=== PATIENT | female | born 1935 | race Caucasian/White ===

== ENCOUNTER 2018-12-29 12:30 | Inpatient (IN) | payer MEDICARE ==
[~2018-12-29] VITALS: Ht 175.3 cm; Wt 74.8 kg
[~2018-12-29 12:30] MED LIST: ACET500T15 PO; ALBU17IN INH; AZIT500T5 PO; DIGO0.12 PO; ELIQ2.5T PO; LEVA1TAB2 PO; METO1TAB7 PO; MUCI600T37 PO; PROT1TAB2 PO; TOPR100T PO; XARE20TA PO
[2019-01-19] MEDS ORDERED: DIGO0.123 PO (08:03)
[2019-01-19] MEDS ORDERED: ASPI81TA85 PO (08:03)
--- NOTE | 2019-02-02 11:31 | HPE ---
DATE OF ADMISSION: 02/06/2019 Mrs. Mariee is an 83-year-old female with continuing symptomatic right knee osteoarthritis. She has consented for a right total knee arthroplasty per Dr. Pablo Cisse. Medical optimization per Dr. Soto and Dr. Mai. X-rays are consistent with advanced osteoarthritis. ALLERGIES: PENICILLIN causes hives. Notes MUCINEX caused her to have throat swelling. MEDICATIONS: - digoxin 0.125 mg by mouth daily - lorazepam 0.5 mg by mouth daily 10 days as needed - metoprolol succinate ER 1 tablet by mouth daily - rivaroxaban 20 mg by mouth daily MEDICAL PROBLEM LIST: Include: 1. Symptomatic right knee osteoarthritis. 2. Atrial fibrillation. PAST SURGICAL HISTORY: 1. Tubal ligation. 2. Stomach surgery. FAMILY HISTORY: Noncontributory. SOCIAL HISTORY: She has never smoked. Denies ethanol intake or illicit drugs. REVIEW OF SYSTEMS: Denies chest pain, shortness of breath, dyspnea on exertion, fever, chills, malaise, upper respiratory or urinary tract symptoms. Labs were reviewed. MCV 102.1. Glucose 104. Anion gap 6. Albumin-globulin ratio 0.95. ProTime 20.2. Otherwise, unremarkable. EKG, as read by Dr. Micehal Mai, atrial fibrillation, moderate ST depression. Compared to last four tracings in the system atrial fibrillation is old, heart rate is now slower. Chest x-ray: No acute cardiopulmonary process as read by Dr. Aceves. PHYSICAL EXAMINATION: Blood pressure 130/80, pulse 78, respiration 97.5. Height 69 inches. Weight 166 pounds and 8 ounces. BMI 24.6. Respirations 17. She is a pleasant, well-developed, well-nourished 83-year-old female in no acute distress, alert and oriented times three. Mood and affect are appropriate. Bilateral lower extremities show chronic dependent edema, some derma stasis, otherwise intact, benign noninfectious looking. Right knee joint line tenderness to palpation, otherwise not hot, benign noninfectious looking. Bowel soft, nontender times four. Chest rises symmetrically. Regular rate and rhythm. Lungs clear to auscultation. Neck supple. Negative jugular venous distention (JVD) or bruits. Normocephalic. IMPRESSION: 1. Right knee symptomatic osteoarthritis. 2. The patient consented for a right total knee arthroplasty per Dr. Pablo Cisse. 3. Medical optimization per Dr. Soto, primary care physician and Dr. Micheal Mai, Cardiology. 4. On-call to the operating room (OR) 900 mg clindamycin IV per PENICILLIN (PCN) ALLERGY. 5. Sequential compressive device (SCD) and thromboembolism deterrents (TEDs) in OR. Edited: 02/02/2019 1130 [facility]
--- NOTE | 2019-02-02 11:39 | HPE ---
DATE OF ADMISSION: 02/06/2019 COPIED AND PASTED TO ORIGINAL HISTORY AND PHYSICAL WHERE DICTATION ENDED............................. ON JOB #[id number] MEDICATIONS: - digoxin 0.125 mg by mouth daily - lorazepam 0.5 mg by mouth daily 10 days as needed - metoprolol succinate ER 1 tablet by mouth daily - rivaroxaban 20 mg by mouth daily MEDICAL PROBLEM LIST: Include: 1. Symptomatic right knee osteoarthritis. 2. Atrial fibrillation. PAST SURGICAL HISTORY: 1. Tubal ligation. 2. Stomach surgery. FAMILY HISTORY: Noncontributory. SOCIAL HISTORY: She has never smoked. Denies ethanol intake or illicit drugs. REVIEW OF SYSTEMS: Denies chest pain, shortness of breath, dyspnea on exertion, fever, chills, malaise, upper respiratory or urinary tract symptoms. Labs were reviewed. MCV 102.1. Glucose 104. Anion gap 6. Albumin-globulin ratio 0.95. ProTime 20.2. Otherwise, unremarkable. EKG, as read by Dr. Micheal Mai, atrial fibrillation, moderate ST depression. Compared to last four tracings in the system atrial fibrillation is old, heart rate is now slower. Chest x-ray: No acute cardiopulmonary process as read by Dr. Roberts. PHYSICAL EXAMINATION: Blood pressure 130/80, pulse 78, respiration 97.5. Height 69 inches. Weight 166 pounds and 8 ounces. BMI 24.6. Respirations 17. She is a pleasant, well-developed, well-nourished 83-year-old female in no acute distress, alert and oriented times three. Mood and affect are appropriate. Bilateral lower extremities show chronic dependent edema, some derma stasis, otherwise intact, benign noninfectious looking. Right knee joint line tenderness to palpation, otherwise not hot, benign noninfectious looking. Bowel soft, nontender times four. Chest rises symmetrically. Regular rate and rhythm. Lungs clear to auscultation. Neck supple. Negative jugular venous distention (JVD) or bruits. Normocephalic. IMPRESSION: 1. Right knee symptomatic osteoarthritis. 2. The patient consented for a right total knee arthroplasty per Dr. Pablo Cisse. 3. Medical optimization per Dr. Soto, primary care physician and Dr. Micheal Mai, Cardiology. 4. On-call to the operating room (OR) 900 mg clindamycin IV per PENICILLIN (PCN) ALLERGY. 5. Sequential compressive device (SCD) and thromboembolism deterrents (TEDs) in OR.
[2019-02-06] MEDS ORDERED: fentaNYL 100 MCG/2 ML INJECTION (J3010) IV SCH (06:00)
[2019-02-06] MEDS ORDERED: MIDAZOLAM INJ 2 MG/2 ML VIAL (J2250) IV SCH (06:00)
[2019-02-06] MEDS ORDERED: LIDOCAINE 1% MDV 20ML VIAL SQ PRN (06:00)
[2019-02-06] MEDS ORDERED: MIDAZOLAM INJ 2 MG/2 ML VIAL (J2250) As Ordered ONE ×2 (06:36→11:35)
[2019-02-06] MEDS ORDERED: fentaNYL 100 MCG/2 ML INJECTION (J3010) As Ordered ONE ×2 (06:36→11:35)
[2019-02-06] MEDS ORDERED: TRANEXAMIC ACID 100 MG/ML 10ML VIAL As Ordered ONE (06:44)
[2019-02-06] MEDS ORDERED: BUPIVACAINE HCL 0.25% 10 ML VIAL As Ordered ONE (06:44)
[2019-02-06] MEDS ORDERED: CLINDAMYCIN INJ 900MG/6ML VIAL As Ordered ONE (06:45)
[2019-02-06] MEDS ORDERED: BUPIVACAINE LIPOSOME/PF 1.3% 20ML VIAL (13.3MG/ML)(EXPAREL)(C9290 PER1MG) As Ordered ONE (06:45)
[2019-02-06] MEDS ORDERED: EPINEPHrine INJ 1 MG/ML 1ML VIAL As Ordered ONE (06:45)
[2019-02-06] MEDS ORDERED: LR 1,000 ML IV ONE (07:00)
[2019-02-06] MEDS ORDERED: ACETAMINOPHEN 500 MG TAB PO ONE (10:30)
[2019-02-06] MEDS ORDERED: VANCOMYCIN HCL 1,000 MG, VIAL MATE ADAPTER 1 EACH in D5W 250 ML IV ONE (10:30)
[2019-02-06] MEDS ORDERED: LIDOCAINE 2% INJ 100 MG/5 ML SDV (FOR ANES.) As Ordered ONE ×2 (11:32→13:40)
[2019-02-06] MEDS ORDERED: PROPOFOL 500 MG/50 ML VIAL As Ordered ONE (11:32)
[2019-02-06] MEDS ORDERED: ONDANSETRON 4MG/2ML VIAL (J2405) As Ordered ONE (11:33)
[2019-02-06] MEDS ORDERED: dexameTHASONE 4 MG/ML 1ML VIAL (J1100) As Ordered ONE (11:33)
[2019-02-06] MEDS ORDERED: EPINEPHrine INJ 1 MG/ML 1ML VIAL ONE (14:29)
[2019-02-06] MEDS ORDERED: dexameTHASONE 10 MG/1 ML VIAL PRES.FREE (J1100) ONE (14:29)
[2019-02-06] MEDS ORDERED: ROPIvacaine 0.5% 30 ML INJECTION (J2795 PER 1MG) ONE (14:29)
[2019-02-06] MEDS ORDERED: fentaNYL 100 MCG/2 ML INJECTION (J3010) IV PRN (15:00)
[2019-02-06] MEDS ORDERED: LR 1,000 ML IV SCH (15:00)
[2019-02-06] MEDS ORDERED: METOCLOPRAMIDE INJ 10MG/2ML VIAL (J2765) IV PRN (15:00)
[2019-02-06] MEDS ORDERED: oxyCODONE 5MG TAB PO PRN (15:00)
[2019-02-06] MEDS ORDERED: ONDANSETRON 4MG/2ML VIAL (J2405) IV PRN (15:00)
[2019-02-06] MEDS ORDERED: MEPERIDINE INJ 25 MG/ML VIAL (J2175) IV PRN (15:00)
--- NOTE | 2019-02-06 15:11 | REP ---
Clinical: Status post knee replacement. Technique AP and cross-table lateral views. Findings: The patient is status post right knee replacement with normal positioning and appearance to the femoral and tibial components. Overlying postsurgical changes appreciated. Impression: Status post right knee replacement. Electronically Signed by Kieran Aceves MD 02/06/2019 03:03 P
[2019-02-06 15:55] VITALS: BP 118/64
[2019-02-06] MEDS: LR 1,000 ML IV SCH (16:00)
[2019-02-06] MEDS ORDERED: FLEET ENEMA PR PRN (16:00)
[2019-02-06] MEDS ORDERED: HYDROMORPHONE HCL 0.5 MG/ 0.5 ML SYRINGE (J1170 PER 1) IV PRN ×2 (16:00)
[2019-02-06] MEDS ORDERED: ACETAMINOPHEN TAB 650MG DOSE (2X325MG) PO PRN (16:00)
--- NOTE | 2019-02-06 18:28 | CR.PDOC ---
General Date of Consultation: Feb 06, 2019 Consultation REASON FOR CONSULTATION/CHIEF COMPLAINT: Physical evaluation HISTORY OF PRESENT ILLNESS: Patient is 83 years old female with past medical history of atrial fibrillation, arthritis was admitted for planned right knee replacement. The surgery was done today and it was uncomplicated. Patient denies fever, chills, nausea, vomiting, shortness of breath, palpitations, diarrhea or dysuria ALLERGIES: Please see below. HOME MEDICATIONS: Please see below. PAST MEDICAL HISTORY: 1. Arthritis 2. Atrial fibrillation PAST SURGICAL HISTORY: 1 Tubal ligation. FAMILY HISTORY: I personally reviewed family history and found non pertinent SOCIAL HISTORY: ETOH: Negative Illicit drug use: Negative IV drug use: Negative REVIEW OF SYSTEMS: 10 point review system negative except listed as above PHYSICAL EXAMINATION: VITAL SIGNS: Please see below. GENERAL APPEARANCE: Well-nourished, well-developed, not in apparent distress HEENT: Normocephalic, atraumatic. Mucous members moist and pink CARDIOVASCULAR: Regular rate and rhythm. No murmurs, rubs or gallops. Radial pulses are intact. There is no lower extremity edema LUNGS: CTA ABDOMEN: Abdomen is soft and nontender. MUSCULOSKELETAL: Limited right knee range of motion due to surgery NEUROLOGICAL: Cranial nerves II-12 are grossly intact. Speech is not dysarthric LABORATORY DATA: Please see below. ASSESSMENT/PLAN: Patient is 83 years old female with past medical history of atrial fibrillation, arthritis was admitted for planned right knee replacement Status post right knee replacement Continue pain management Anticoagulation per orthopedics team No any signs of acute infectious process Vital Signs/I&O Vital Signs Date Time Temp Pulse Resp B/P (MAP) Pulse Ox O2 Delivery O2 Flow Rate FiO2 02/06/19 15:55 97.2 66 18 118/64 (82) 99 Nasal Cannula 2.0 Allergies Coded Allergies: guaifenesin (Verified Allergy, Severe, DIFF WITH BREATHING, 02/06/19) Penicillins (Verified Allergy, Intermediate, RASH, 02/06/19) Home Medications Scheduled Aspirin (Aspir 81) 81 Mg Tablet.dr, 81 MG PO DAILY, #30 (Reported) Digoxin (Digoxin) 125 Mcg Tablet, 125 MCG PO DAILY, (Reported) Metoprolol Succinate (Toprol Xl) 100 Mg Tab, 100 MG PO DAILY, #30 Rivaroxaban (Xarelto) 20 Mg Tab, 20 MG PO DAILY, #30 Scheduled PRN Acetaminophen (Acetaminophen) 500 Mg Tab, 500 MG PO for PAIN, (Reported) RUPA GAMBINO DO Feb 06, 2019 18:28
[2019-02-06 20:45] VITALS: BP 157/81
[2019-02-07] MEDS: VANCOMYCIN HCL 1,000 MG, VIAL MATE ADAPTER 1 EACH in D5W 250 ML IV SCH ×2 (00:43→11:56)
[2019-02-07] MEDS: LR 1,000 ML IV SCH (00:44)
[2019-02-07 02:10] VITALS: BP 128/61
[2019-02-07 06:17] VITALS: BP 126/62
[2019-02-07] MEDS ORDERED: PERCOCET 5MG/325MG TAB PO PRN ×2 (06:30)
[2019-02-07] MEDS ORDERED: PERC5TAB12 PO (06:41)
[2019-02-07 06:47] LABS: HEMATOCRIT 39.6 % (36.0-47.0); HEMOGLOBIN 13.2 g/dl (12.0-15.5); MEAN CORPUSCULAR HEMOGLOBIN 33.1 pg (27.0-33.0); MEAN CORPUSCULAR HGB CONC 33.3 g/dl (32.0-36.5); MEAN CORPUSCULAR VOLUME 99.2 fl (80.0-96.0); PLATELET COUNT, AUTOMATED 186 10^3/uL (150-450); RED BLOOD COUNT 3.99 10^6/uL (4.00-5.40); WHITE BLOOD COUNT 14.6 10^3/uL (4.0-10.0)
[2019-02-07 06:58] LABS: INR 1.18; PROTHROMBIN TIME 14.7 SECONDS (11.8-14.0)
[2019-02-07 07:05] LABS: BLOOD UREA NITROGEN 10 MG/DL (7-18); CALCIUM LEVEL 8.6 MG/DL (8.8-10.2); CARBON DIOXIDE LEVEL 22 MEQ/L (21-32); CHLORIDE LEVEL 111 MEQ/L (98-107); GLOMERULAR FILTRATION RATE > 60.0 (>32); GLUCOSE, FASTING 128 MG/DL (70-100); POTASSIUM SERUM 4.2 MEQ/L (3.5-5.1); SODIUM LEVEL 141 MEQ/L (136-145)
[2019-02-07] MEDS ORDERED: MIRALAX *UNIT DOSE* 17GM PACKET PO SCH (09:00)
[2019-02-07] MEDS ORDERED: ASPIRIN 81 MG ENTERIC TAB PO ONE (09:00)
[2019-02-07] MEDS ORDERED: MOM 30ML SUSPENSION UDC PO SCH (09:00)
[2019-02-07 10:00] VITALS: BP 123/62
[2019-02-08] MEDS ORDERED: RIVAROXABAN 20 MG TAB (XARELTO) PO SCH (08:00)
--- NOTE | 2019-02-08 09:05 | RO ---
DATE OF PROCEDURE: 02/06/2019 PREPROCEDURE DIAGNOSIS: Right knee degenerative arthritis. POSTPROCEDURE DIAGNOSIS: Right knee degenerative arthritis. PROCEDURE: Right total knee arthroplasty using a size 6 femoral component, size 5 tibial tray with a 6 mm rotating platform polyethylene insert, and a 35 mm polyethylene button. All components were cemented. Prosthesis was made by [employer]. It was an Attune knee. Femoral component was cruciate-retaining. SURGEON: Dr. Santos Cisse RE EXAMINER: Mr. Pritesh Wick ANESTHESIA: Right femoral nerve block with spinal. COMPLICATIONS: None. ESTIMATED BLOOD LOSS: 20 mL. SPECIMENS: Joint surface. DESCRIPTION OF PROCEDURE: Antibiotics were given intravenously preoperatively and then a successful right femoral nerve block, and then a spinal anesthetic was induced. Tourniquet was placed on the right upper thigh and not inflated. Right lower extremity was carefully prepped and draped in the usual sterile fashion. After appropriate time-out, tourniquet was inflated, then a longitudinal incision was made for a medial parapatellar approach to the knee. Bovie cautery was used to coagulate crossing vessels. Medial parapatellar arthrotomy was performed. Subperiosteal dissection around the proximal, medial and lateral tibial plateau was then performed. Then, we everted the patella and flexed the knee, drill placed down the center of the femoral canal, followed by the intramedullary humble, the distal femoral cutting jig set at 5 degree valgus cut at 9 mm resection level for a right knee. Block was pinned into position, distal femoral cut was performed. AP sizing jig measured for a size 6 femoral component. 3 degrees of external rotation were dialed in and the 4-in-1 block was applied over the pins. Anterior, posterior, chamfer cuts performed. The sulcus cut osteotomy was then performed using the jig and then the proximal tibia was exposed using the extramedullary alignment jig, estimating being parallel to the mechanical axis of the tibia. We measured both, ended up taking 6 off the medial side because that corresponded to about 1 off the lateral side, which was the more involved side given this valgus knee. Secondary check with the extramedullary rods confirmed we appeared to be parallel to the mechanical axis. Thus, proximal tibial osteotomy was performed. We then placed the lamina director of solutions architecture medially and performed a completion lateral meniscectomy and debridement of the posterolateral osteophytes. We then placed the lamina director of [employer] laterally and performed a completion medial meniscectomy and debridement of the posteromedial osteophytes. 6 mm spacer fit the best. There was still some, however, tightness medially especially both in flexion and in extension. Thus, I elected to take two additional millimeters off the proximal tibia. I reapplied the block, made sure it was appropriately aligned with the secondary check with the extramedullary humble, and dropped it 2 mm, and then performed a proximal tibial osteotomy. Again, the 6 mm and then the 7 mm spacer was trialed, and I still felt that the 6 mm was best with good symmetry to varus/valgus stress testing both in flexion and in extension. We then exposed the proximal tibia and sized for a #5 tibial tray, which was pinned into position, followed by the reamer and broach. The trial 6 mm was placed, followed by the trial femoral component, and then the knee was brought into extension, the patellar everted, patellar osteotomy performed. It measured for a 35 button. Lug holes were drilled, the trial placed, and patellofemoral tracking was anatomic. And she had actually beautiful flexion and extension on the table with good stability. Thus, at this point, I everted the patella and then drilled the lug holes for the femur, removed all the trial components and placed the Exparel in the subperiosteal tissues around the distal femur and the proximal tibia. Then copiously pulsatile lavage irrigated out the knee joint and all the bony surfaces in preparation for cementing. While I was doing this, my physician assistant, Mr. Pritesh Wick, mixed the cement on the back table. He was also critical to the success of this difficult surgery by helping with appropriate soft tissue retraction, helped to manipulate the knee as needed, helped to close the wound, helped to prepare the patient, helped to mix the cement, amongst many other tasks to allow me to perform the operation smoothly, efficiently and safely. We then cemented the tibial tray, removed the excess cement, and then placed polyethylene, then cemented the femoral component, removed excess cement, brought the knee into extension, everted the patella and cemented the patellar component, removed excess cement, and held the knee in extension with a clamp on the patella until the cement had hardened. As we were awaiting this, we copiously pulsatile lavage irrigated out the knee joint and then placed tranexamic acid in the depths of the wound and then closed the apex of the wound with interrupted #1 PDS sutures. The medial parapatellar area was closed with interrupted #1 sutures and a double-armed #1 Stratafix was used to close the capsule. We then released the tourniquet at this point, and then irrigated again between layers, closed the deep subdermal tissues with interrupted #2-0 PDS sutures, skin was closed with eladia, covered by an Optifoam, dry sterile bulky dressing. The patient was then transferred to the recovery room in stable condition. There were no intraoperative complications.
== END 2019-02-07 14:40 | disposition home or self-care (01) | DRG 470 ==
LOC: M OR 02-06 09:53 → M MS5PR 02-06 15:55
PROVIDERS: ADMIT Orthopaedic Surgery; ATTEND Orthopaedic Surgery
PROC: 0SRC0J9 Replacement of Right Knee Joint with Synthetic Substitute, Cemented, Open Approach (ICD-10-PCS; principal; 2019-02-06 12:10)
DX: M17.11 Unilateral primary osteoarthritis, right knee (principal); I48.91 Unspecified atrial fibrillation; Z88.0 Allergy status to penicillin; Z88.8 Allergy status to other drugs, medicaments and biological substances; Z79.899 Other long term (current) drug therapy

== ENCOUNTER → 2019-01-09 | Outpatient (CLI) | payer MEDICARE ==
[2019-01-09 11:05] LABS: HEMATOCRIT 43.2 % (36.0-47.0); HEMOGLOBIN 13.9 g/dl (12.0-15.5); MEAN CORPUSCULAR HEMOGLOBIN 32.9 pg (27.0-33.0); MEAN CORPUSCULAR HGB CONC 32.2 g/dl (32.0-36.5); MEAN CORPUSCULAR VOLUME 102.1 fl (80.0-96.0); PLATELET COUNT, AUTOMATED 231 10^3/uL (150-450); RED BLOOD COUNT 4.23 10^6/uL (4.00-5.40); WHITE BLOOD COUNT 7.3 10^3/uL (4.0-10.0)
[2019-01-09 11:18] LABS: INR 1.75; PROTHROMBIN TIME 20.2 SECONDS (11.8-14.0)
--- NOTE | 2019-01-09 11:20 | REP ---
Clinical: Preoperative assessment . Comparison: 06/24/2015 . Technique: PA and lateral. Findings: The mediastinum and cardiac silhouette are normal. The lung nunez demonstrate chronic changes without acute consolidation, effusion, or pneumothorax. The skeletal structures are intact and normal. Impression: 1. No acute cardiopulmonary process. Electronically Signed by Kieran Aceves MD 01/09/2019 11:11 A
[2019-01-09 11:23] LABS: ERYTHROCYTE SEDIMENTATION RATE 14 mm/hr (0-30)
[2019-01-09 11:30] LABS: ALBUMIN 3.7 GM/DL (3.2-5.2); CALCIUM LEVEL 9.1 MG/DL (8.8-10.2); CREATININE FOR GFR 0.99 MG/DL (0.55-1.30); GLOMERULAR FILTRATION RATE 56.9 (>32); POTASSIUM SERUM 4.3 MEQ/L (3.5-5.1); TOTAL PROTEIN 7.6 GM/DL (6.4-8.2)
--- NOTE | 2019-01-10 01:00 | ECGEPIP ---
Test Date: 2019-01-09 Pat Name: ISRAEL GRIGSBY Department: Room: - Gender: Female Occupational Therapy Asst: KATI : 1935 Requested By: Santos Shah Order Number: [id number] Reading MD: Micheal Mai Measurements Intervals [place] Rate: 66 P: MT: 0 QRS: 26 QRSD: 95 T: 59 QT: 408 QTc: 430 Interpretive Statements ATRIAL FIBRILLATION MODERATE ST DEPRESSION COMPARED TO THE LAST 4 TRACINGS IN THE SYSTEM, ATRIAL FIBRILLATION IS OLD. HEART RATE IS NOW SLOWER Electronically Signed on 01-10-2019 0:59:31 EST by Micheal Mai
== END ==
LOC: M LAB 10:11
PROVIDERS: ATTEND Orthopaedic Surgery
DX: Z01.818 Encounter for other preprocedural examination (principal); M17.11 Unilateral primary osteoarthritis, right knee; I48.92 Unspecified atrial flutter

== ENCOUNTER → 2021-07-19 | Outpatient (CLI) | payer MEDICARE ==
[~2021-07-19] MED LIST changes: +ASPI81TA86 PO; +DIGO0.123 PO; +LETR2.5T2 PO; +PERC5TAB12 PO
== END ==
LOC: M WHC 10:20
PROVIDERS: ATTEND Internal Medicine Medical Oncology
DX: M85.851 Other specified disorders of bone density and structure, right thigh (principal); M85.852 Other specified disorders of bone density and structure, left thigh; C50.912 Malignant neoplasm of unspecified site of left female breast

== ENCOUNTER 2023-01-16 09:56 | Emergency (ER) | payer MEDICARE ==
[~2023-01-16] VITALS: Ht 177.8 cm; Wt 75.0 kg
[~2023-01-16 09:56] MED LIST changes: +ALEN70TA82 PO; +ELIQ5TAB; +EXEM25TA PO
[2023-01-16 11:46] LABS: VENOUS BASE EXCESS 1.3 (-2.0-2.0); VENOUS HCO3 27.4 MMOL/L (23.0-27.0); VENOUS O2 SATURATION 65.6 % (60.0-80.0); VENOUS PARTIAL PRESSURE CO2 48.2 mmHg (38.0-50.0); VENOUS PARTIAL PRESSURE O2 33.9 mmHg (30.0-50.0); VENOUS PH 7.372 UNITS (7.330-7.430); VENOUS STANDARD HCO3 24.7 MMOL/L; VENOUS TOTAL CO2 28.8 MMOL/L (24.0-28.0)
[2023-01-16 11:56] LABS: BASO # 0.1 10^3/uL (0.0-0.2); BASO % 0.5 % (0.0-1.0); EOS % 0.1 % (0.0-3.0); HEMOGLOBIN 15.2 g/dl (12.0-15.5); LYMPH # 0.6 10^3/uL (1.5-5.0); LYMPH % 6.2 % (24.0-44.0); MEAN CORPUSCULAR HEMOGLOBIN 33.1 pg (27.0-33.0); MEAN CORPUSCULAR HGB CONC 33.8 g/dl (32.0-36.5); MONO # 0.7 10^3/uL (0.0-0.8); MONO % 7.2 % (2.0-8.0); NEUTROPHILS # 8.3 10^3/uL (1.5-8.5); NEUTROPHILS % 85.7 % (36.0-66.0); PLATELET COUNT, AUTOMATED 193 10^3/uL (150-450); RED BLOOD COUNT 4.59 10^6/uL (4.00-5.40); WHITE BLOOD COUNT 9.7 10^3/uL (4.0-10.0)
[2023-01-16 12:07] LABS: INR 1.53; PROTHROMBIN TIME 17.9 SECONDS (12.5-14.5)
[2023-01-16 12:20] LABS: ALKALINE PHOSPHATASE 99 U/L (46-116); ALT/SGPT 24 U/L (7.0-40); AST/SGOT 16 U/L (<34); BILIRUBIN,DIRECT 0.7 MG/DL (<0.4); BILIRUBIN,TOTAL 2.2 MG/DL (0.3-1.2); BLOOD UREA NITROGEN 9 MG/DL (9-23); CARBON DIOXIDE LEVEL 28 MMOL/L (20-31); CHLORIDE LEVEL 101 MMOL/L (98-107); CK-MB VALUE MASS < 1.0 NG/ML (<3.6); CPK CREATINE PHOSPHOKINASE 65 U/L (34-145); CREATININE FOR GFR 0.71 MG/DL (0.55-1.30); GLOMERULAR FILTRATION RATE > 60.0 (>32); GLUCOSE, FASTING 122 MG/DL (74-106); MB/CK RELATIVE INDEX 1.53 (< OR =4); POTASSIUM SERUM 3.7 MMOL/L (3.5-5.1); SODIUM LEVEL 137 MMOL/L (136-145); TOTAL PROTEIN 7.6 G/DL (5.7-8.2)
[2023-01-16 12:23] LABS: THYROID STIMULATING HORMONE 0.376 uIU/ML (0.55-4.78)
[2023-01-16 12:32] LABS: PROCALCITONIN 0.05 ng/ml
[2023-01-16] MEDS ORDERED: ISOVUE-370 76% 100ML VIAL As Ordered ONE (13:04)
[2023-01-16 13:44] LABS: CK-MB VALUE MASS < 1.0 NG/ML (<3.6); CPK CREATINE PHOSPHOKINASE 63 U/L (34-145); MB/CK RELATIVE INDEX 1.58 (< OR =4)
[2023-01-16 14:03] VITALS: O2SAT 95
[2023-01-16 15:27] LABS: CK-MB VALUE MASS < 1.0 NG/ML (<3.6); CPK CREATINE PHOSPHOKINASE 60 U/L (34-145); MB/CK RELATIVE INDEX 1.66 (< OR =4)
[2023-01-16 16:00] VITALS: O2SAT 97
[2023-01-16 16:22] VITALS: BP 168/82
[2023-01-16 17:13] VITALS: TEMP 100.9
== END 2023-01-16 17:20 | disposition home or self-care (01) ==
LOC: M ED 09:56
DX: U07.1 COVID-19 (principal); I48.91 Unspecified atrial fibrillation; Z85.3 Personal history of malignant neoplasm of breast; Z87.19 Personal history of other diseases of the digestive system; Z79.01 Long term (current) use of anticoagulants; Z79.899 Other long term (current) drug therapy; Z88.0 Allergy status to penicillin; Z88.8 Allergy status to other drugs, medicaments and biological substances
CPT/HCPCS: 71045; 71275; 80048; 80076; 82550; 82553; 82803; 83605; 83880; 84145; 84443; 84484; 85025; 85610; 87040; 87486; 87581; 87633; 87798; 93005; 93041; 94760; 99285; Q9967